=== PATIENT | female | born 1960 | race Caucasian/White ===

== ENCOUNTER 2018-02-10 18:05 | Observation (INO) | payer OTHER ==
[~2018-02-10] VITALS: Ht 167.6 cm; Wt 100.0 kg
[2018-02-10] VITALS (8 sets, daily range): BP systolic 106–177; BP diastolic 65–84; PULSE 70–91; RESP 15–20; TEMP 97.5–98.4; O2SAT 97–100
[~2018-02-10 18:05] MED LIST: ALDA100T PO; GABA600T PO; HYDR-3580 PO; OMEP20TA39 PO; PROBCAP4 PO; TAB-TAB PO
[2018-02-10] MEDS ORDERED: SODIUM CHLORIDE 0.9% FLUSH 10 ML FLUSH IVF PRN (18:45)
[2018-02-10] MEDS ORDERED: VITA2000 PO (19:00)
--- NOTE | 2018-02-10 19:21 | RADRPT ---
EXAM DATE/TIME: 02/10/2018 19:00 [facility] COMPARISON: CHEST PA & LAT, July 11, 2015, 14:20. INDICATIONS : Pt complaining of pain/pressure in the middle of her chest. MEDICAL HISTORY : None. SURGICAL HISTORY : None. ENCOUNTER: Initial ACUITY: 1 day PAIN SCORE: 3/10 LOCATION: Bilateral chest FINDINGS: A single view of the chest demonstrates the lungs to be symmetrically aerated without evidence of mas s, infiltrate or effusion. The cardiomediastinal contours are unremarkable. Osseous structures are intact. CONCLUSION: No acute disease. Lavon Taylor MD on February 10, 2018 at 19:18 Board Certified Radiologist. This report was verified electronically.
[2018-02-10 19:25] LABS: AUTOMATED NEUTROPHIL # 4.5 TH/MM3 (1.8-7.7); BASOPHIL # 0.1 TH/MM3 (0-0.2); BASOPHIL % 0.9 % (0.0-2.0); EOSINOPHIL # 0.2 TH/MM3 (0-0.4); EOSINOPHIL % 3.2 % (0.0-4.0); HEMATOCRIT 39.5 % (35.0-46.0); HEMOGLOBIN 13.6 GM/DL (11.6-15.3); LYMPH % 29.2 % (9.0-44.0); LYMPHOCYTE # 2.2 TH/MM3 (1.0-4.8); MEAN CELL VOLUME 91.8 FL (80.0-100.0); MEAN CORPUSCULAR HEMOGLOBIN 31.7 PG (27.0-34.0); MEAN CORPUSCULAR HGB CONC 34.5 % (32.0-36.0); MEAN PLATELET VOLUME 7.7 FL (7.0-11.0); MONO % 6.2 % (0.0-8.0); MONOCYTE # 0.5 TH/MM3 (0-0.9); NEUT % 60.5 % (16.0-70.0); PLATELET COUNT 288 TH/MM3 (150-450); RED CELL DISTRIBUTION WIDTH 12.9 % (11.6-17.2); WHITE BLOOD COUNT 7.5 TH/MM3 (4.0-11.0)
[2018-02-10 19:28] LABS: PROTHROMBIN TIME - PATIENT 10.3 SEC (9.8-11.6)
[2018-02-10] MEDS ORDERED: FAMOTIDINE 20 MG/2 ML VIAL IV PUSH SCH (19:30)
[2018-02-10] MEDS ORDERED: ASPIRIN 81 MG CHEW TAB CHEW ONE (19:30)
[2018-02-10 19:33] LABS: ALBUMIN 3.7 GM/DL (3.4-5.0); AST (GOT) 17 U/L (15-37); BICARBONATE 28.5 MEQ/L (21.0-32.0); BLOOD UREA NITROGEN 14 MG/DL (7-18); CALCIUM 8.7 MG/DL (8.5-10.1); CHLORIDE 106 MEQ/L (98-107); CREATININE 1.24 MG/DL (0.50-1.00); GLOMERULAR FILTRATION RATE 45 ML/MIN (>89); GLUCOSE,RANDOM 79 MG/DL (74-106); MAGNESIUM 1.9 MG/DL (1.5-2.5); SODIUM (NA) 141 MEQ/L (136-145)
[2018-02-10 19:35] LABS: ALT (GPT) 20 U/L (10-53)
[2018-02-10 19:38] LABS: ALKALINE PHOSPHATASE 88 U/L (45-117); TOTAL BILIRUBIN ADULT 0.3 MG/DL (0.2-1.0); TOTAL PROTEIN 7.5 GM/DL (6.4-8.2); TROPONIN I LESS THAN 0.02 NG/ML (0.02-0.05)
--- NOTE | 2018-02-10 19:38 | PD ---
HPI Chief Complaint: Chest Pain Time Seen by Provider: 19:10 Travel History International Travel<30 days: No Contact w/Intl Traveler<30days: No Traveled to known affect area: No History of Present Illness HPI Patient is a 57-year-old female who for 2 hours has had a stabbing intermittent pain in her left chest as well as her left upper arm. She denies exertionally came upon her as she was leaving work. She has no cardiac history she is not hypertensive nondiabetic she does not smoke. She has had a stress test many years ago and it was normal she says. She has no nausea no vomiting no shortness of breath nondiaphoretic it is focal left-sided chest pain off left the sternum nonreproducible and I palpate her left arm I cannot reproduce the pain when she palpates her left breast area she cannot reproduce the pain. She is allergic to amoxicillin I gave her to chewable aspirin Pepcid IV and EKG is normal sinus rhythm no ectopy and no ST elevations or depressions patient's labs are sent will evaluate troponin possible admit to chest pain center after negative throat PFSH Past Medical History Hx Anticoagulant Therapy: No Cancer: No Cardiovascular Problems: Yes (MITRAL VALVE PROLAPSE) Diminished Hearing: No Diverticulitis: Yes Endocrine: No Gastrointestinal Disorders: Yes (GASTRIC ULCER, GASTROPORESIS) Genitourinary: No Hepatitis: No Hiatal Hernia: Yes Immune Disorder: No Musculoskeletal: Yes (CERVICAL C5-C6 HERNIATION, LUMDAR DDD, ARTHRITIS) Psychiatric: No Reproductive: Yes (polycystic ovarian disease) Respiratory: Yes (BRONCHITIS) Tetanus Vaccination: < 5 Years Influenza Vaccination: No ?: Not Past Surgical History Abdominal Surgery: Yes (EXPLORATORY [id number] NEPHECTOMY, SPLEEN REPAIRED) Body Medical Devices: SCREW RIGHT FOOT Ear Surgery: No Endocrine Surgery: No Eye Surgery: No Genitourinary Surgery: Yes (LEFT NEPHRECTOMY) Gynecologic Surgery: Yes (HYSTERECTOMY) Hysterectomy: Yes Oral Surgery: Yes (TONSILLECTOMY AND ADENOIDECTOMY) Tonsillectomy: Yes Other Surgery: Yes (C5-C6 fusion) Social History Alcohol Use: Yes (occasionally) Tobacco Use: No Substance Use: No Allergies-Medications (Allergen,Severity, Reaction): Coded Allergies: amoxicillin (Unverified Allergy, Severe, hives, 02/10/18) Reported Meds & Prescriptions Reported Meds & Active Scripts Active Reported Vitamin D3 (Cholecalciferol) 2,000 Unit Cap 2,000 Units PO DAILY Physical Exam Exam Limitations: Poor Historian Narrative GENERAL: Awake alert nontoxic-appearing nondiaphoretic SKIN: Warm and dry. HEAD: Atraumatic. Normocephalic. EYES: Pupils equal and round. No scleral icterus. No injection or drainage. ENT: No nasal bleeding or discharge. Mucous membranes pink and moist. NECK: Trachea midline. No JVD. CARDIOVASCULAR: Regular rate and rhythm. Mildly hypertensive 164 systolic RESPIRATORY: No accessory muscle use. Clear to auscultation. Breath sounds equal bilaterally. GASTROINTESTINAL: Abdomen soft, non-tender, nondistended. Hepatic and splenic margins not palpable. MUSCULOSKELETAL: Extremities without clubbing, cyanosis, or edema. No obvious deformities. NEUROLOGICAL: Awake and alert. No obvious cranial nerve deficits. Motor grossly within normal limits. Five out of 5 muscle strength in the arms and legs. Normal speech. PSYCHIATRIC: Appropriate mood and affect; insight and judgment normal. Data Data Last Documented VS Vital Signs Date Time Temp Pulse Resp B/P (MAP) Pulse Ox O2 Delivery O2 Flow Rate FiO2 02/10/18 19:23 70 20 164/84 (110) 100 Nasal Cannula 2.00 02/10/18 18:14 98.4 Orders Orders Electrocardiogram (02/10/18 18:18) Chest, Single Ap (02/10/18 18:18) Electrocardiogram (02/10/18 18:40) Complete Blood Count With Diff (02/10/18 18:40) Comprehensive Metabolic Panel (02/10/18 18:40) Magnesium (Mg) (02/10/18 18:40) Prothrombin Time / Inr (Pt) (02/10/18 18:40) Act Partial Throm Time (Ptt) (02/10/18 18:40) Troponin I (02/10/18 18:40) Ecg Monitoring (02/10/18 18:40) Bilateral Bp Monitoring (02/10/18 18:40) Iv Access Insert/Monitor (02/10/18 18:40) Oximetry (02/10/18 18:40) Oxygen Administration (02/10/18 18:40) Sodium Chloride 0.9% Flush (Ns Flush) (02/10/18 18:45) Aspirin Chew (Aspirin Chew) (02/10/18 19:30) Famotidine Inj (Pepcid Inj) (02/10/18 19:30) Nitroglycerin 2% Oint (Nitroglycerin 2% (02/10/18 22:00) Admit Order (Ed Use Only) (02/10/18 19:47) Place In Observation (02/10/18 19:48) Activity Bed Rest With Brp (02/10/18 19:48) Vital Signs (Adult) Q4H (02/10/18 19:48) Cardiac Rhythm .As Directed (02/10/18 19:48) Notify Dr: Other .PRN (02/10/18 19:48) Notify Dr. Parameters (02/10/18 19:48) Resp Oxygen Nasal Cannula (02/10/18 ) Ckmb (Isoenzyme) Profile (02/10/18 19:48) Ckmb (Isoenzyme) Profile (02/10/18 22:48) Troponin I (02/10/18 19:48) Troponin I (02/10/18 22:48) Electrocardiogram (02/10/18 19:48) Electrocardiogram (02/10/18 22:48) ^ Obtain (02/10/18 19:48) Health Aide / Telemetry KEISHA.Q8H (02/10/18 19:48) Labs Laboratory Tests Test 02/10/18 18:45 White Blood Count 7.5 TH/MM3 Red Blood Count 4.30 MIL/MM3 Hemoglobin 13.6 GM/DL Hematocrit 39.5 % Mean Corpuscular Volume 91.8 FL Mean Corpuscular Hemoglobin 31.7 PG Mean Corpuscular Hemoglobin Concent 34.5 % Red Cell Distribution Width 12.9 % Platelet Count 288 TH/MM3 Mean Platelet Volume 7.7 FL Neutrophils (%) (Auto) 60.5 % Lymphocytes (%) (Auto) 29.2 % Monocytes (%) (Auto) 6.2 % Eosinophils (%) (Auto) 3.2 % Basophils (%) (Auto) 0.9 % Neutrophils # (Auto) 4.5 TH/MM3 Lymphocytes # (Auto) 2.2 TH/MM3 Monocytes # (Auto) 0.5 TH/MM3 Eosinophils # (Auto) 0.2 TH/MM3 Basophils # (Auto) 0.1 TH/MM3 CBC Comment DIFF FINAL Differential Comment Prothrombin Time 10.3 SEC Prothromb Time International Ratio 1.0 RATIO Activated Partial Thromboplast Time 26.8 SEC Blood Urea Nitrogen 14 MG/DL Creatinine 1.24 MG/DL Random Glucose 79 MG/DL Total Protein 7.5 GM/DL Albumin 3.7 GM/DL Calcium Level 8.7 MG/DL Magnesium Level 1.9 MG/DL Alkaline Phosphatase 88 U/L Aspartate Amino Transf (AST/SGOT) 17 U/L Alanine Aminotransferase (ALT/SGPT) 20 U/L Total Bilirubin 0.3 MG/DL Sodium Level 141 MEQ/L Potassium Level 3.7 MEQ/L Chloride Level 106 MEQ/L Carbon Dioxide Level 28.5 MEQ/L Anion Gap 7 MEQ/L Estimat Glomerular Filtration Rate 45 ML/MIN Troponin I LESS THAN 0.02 NG/ML MDM Medical Decision Making Medical Screen Exam Complete: Yes Emergency Medical Condition: Yes Differential Diagnosis Patient has chest pain left-sided possibly from acid reflux gastritis possibly bronchitis pneumonia pulmonary embolism pneumothorax versus cardiac causes of ischemia versus acute coronary syndrome versus pericarditis versus other Narrative Course Patient is given 2 baby aspirin as well as Pepcid IV she still has the pain coming and going first troponin is negative EKG is normal sinus rhythm she is admitted to chest pain center for stress test in the a.m. with 3 serial troponins at this time she is stable and given aspirin and Nitropaste to vasodilator as well as that her blood in case this is caused by cardiac ischemia with possible clot over coronary artery Diagnosis Primary Impression: Chest pain Tomas Olivia MD Feb 10, 2018 19:38
[2018-02-10 23:22] LABS: TROPONIN I LESS THAN 0.02 NG/ML (0.02-0.05)
[2018-02-10] MEDS: NITROGLYCERIN 2% OINT 1 GM PACKET TOPICAL SCH (23:34)
[2018-02-11] VITALS: PULSE 78
[2018-02-11 01:49] LABS: TROPONIN I LESS THAN 0.02 NG/ML (0.02-0.05)
[2018-02-11 04:03] VITALS: BP_SYST 104; BP_SYST 71; BP_DIAS 47; BP_DIAS 58; PULSE 86; RESP 16; TEMP 98.1; O2SAT 93
[2018-02-11 04:27] VITALS: PULSE 75
[2018-02-11] MEDS: NITROGLYCERIN 2% OINT 1 GM PACKET TOPICAL SCH (05:26)
[2018-02-11 07:13] VITALS: PULSE 98
[2018-02-11 08:09] VITALS: BP 121/56; PULSE 76; RESP 20; TEMP 98.1; O2SAT 95
--- NOTE | 2018-02-11 09:06 | HHI.HP ---
[facility] Primary Care Physician Pennie Alonso M.D. Chief Complaint Chest pain History of Present Illness This is a 57-year-old female that presents to ED via private vehicle with a complaint of couple hours of intermittent left-sided chest discomfort and also radiated to the left upper arm. It occurred as she was leaving from work. Denies shortness of breath, nausea, or diaphoresis. Currently denies chest discomfort. Review of Systems General: Patient denies fevers, chills recent, and recent travel HEENT: Patient denies headache. Cardiovascular: Has the chest discomfort as mentioned above. Denies sensation of heart beating rapidly or irregularly. No syncope. Denies diaphoresis. Respiratory: Denies shortness of breath or inspirational chest discomfort. Denies coughing wheezing or hemoptysis. GI: Patient denies nausea, vomiting, diarrhea, abdominal pain, bloody stools. Musculoskeletal: Patient denies joint pain or edema. Denies calf pain or edema. Neurovascular: Patient denies numbness, tingling, weakness in extremities. Denies headache. Past Family Social History Allergies: Coded Allergies: amoxicillin (Unverified Allergy, Severe, hives, 02/10/18) Past Medical History History of chronic kidney disease. Past Surgical History Tonsillectomy. Cervical fusion. Hysterectomy. Reported Medications Reported Meds & Active Scripts Active Reported Vitamin D3 (Cholecalciferol) 2,000 Unit Cap 2,000 Units PO DAILY Active Ordered Medications Current Medications Medications (Trade) Dose Ordered Sig/Alexey Route Start Time Stop Time Status Last Admin (NS Flush) 2 ml UNSCH PRN IVF 02/10/18 18:45 (Pepcid Inj) 20 mg ONCE IV PUSH 02/10/18 19:30 02/10/18 19:37 (Nitroglycerin 2% Oint) 0.5 inch Q8HR TOPICAL 02/10/18 22:00 02/10/18 23:34 Family History History of congestive heart failure. Social History Non-smoker. Occasional alcohol. Denies illicit drugs. Physical Exam Vital Signs Vital Signs Date Time Temp Pulse Resp B/P (MAP) Pulse Ox O2 Delivery O2 Flow Rate FiO2 02/11/18 08:09 98.1 76 20 121/56 (77) 95 02/11/18 07:13 98 02/11/18 04:27 75 02/11/18 04:03 98.1 86 16 104/58 (73) 93 02/11/18 00:00 78 02/10/18 22:08 97.5 88 16 106/72 (83) 97 02/10/18 20:58 97.9 86 15 133/78 (96) 97 02/10/18 20:00 86 02/10/18 19:23 70 20 164/84 (110) 100 Nasal Cannula 2.00 02/10/18 18:44 139/65 (89) 177/81 (113) 02/10/18 18:44 Nasal Cannula 2.00 02/10/18 18:42 91 19 139/65 (89) 99 Nasal Cannula 2.00 177/81 (113) 02/10/18 18:41 98 Room Air 02/10/18 18:14 98.4 76 16 139/65 (89) 100 Physical Exam GENERAL: This is a well-nourished, well-developed patient, in no apparent distress. Patient speaks in clear complete sentences. Patient is pleasant. HEENT: Head is atraumatic and normocephalic. Neck is supple without lymphadenopathy and trachea is midline. No JVD or carotid bruits. CARDIOVASCULAR: Regular rate and rhythm without murmurs, gallops, or rubs. RESPIRATORY: Clear to auscultation. Breath sounds equal bilaterally. No wheezes , rales, or rhonchi. Chest wall is nontender. No use of accessory muscles. GASTROINTESTINAL: Abdomen is nontender, nondistended. Abdomen soft. No obvious pulsatile mass or bruit. No CVA tenderness. Strong femoral pulses bilaterally. Normal bowel sounds in all quadrants. MUSCULOSKELETAL: Patient is moving upper and lower extremities freely. No calf tenderness or edema, no Homans sign. Strong pulses in upper and lower extremities. NEUROLOGICAL: Patient is alert and oriented. Cranial nerves 2-12 are grossly intact. No focal deficits and speech is clear. SKIN: No rash and turgor is normal. Laboratory Laboratory Tests Test 02/10/18 18:45 02/10/18 22:20 02/11/18 01:10 White Blood Count 7.5 Red Blood Count 4.30 Hemoglobin 13.6 Hematocrit 39.5 Mean Corpuscular Volume 91.8 Mean Corpuscular Hemoglobin 31.7 Mean Corpuscular Hemoglobin Concent 34.5 Red Cell Distribution Width 12.9 Platelet Count 288 Mean Platelet Volume 7.7 Neutrophils (%) (Auto) 60.5 Lymphocytes (%) (Auto) 29.2 Monocytes (%) (Auto) 6.2 Eosinophils (%) (Auto) 3.2 Basophils (%) (Auto) 0.9 Neutrophils # (Auto) 4.5 Lymphocytes # (Auto) 2.2 Monocytes # (Auto) 0.5 Eosinophils # (Auto) 0.2 Basophils # (Auto) 0.1 CBC Comment DIFF FINAL Differential Comment Prothrombin Time 10.3 Prothromb Time International Ratio 1.0 Activated Partial Thromboplast Time 26.8 Blood Urea Nitrogen 14 Creatinine 1.24 Random Glucose 79 Total Protein 7.5 Albumin 3.7 Calcium Level 8.7 Magnesium Level 1.9 Alkaline Phosphatase 88 Aspartate Amino Transf (AST/SGOT) 17 Alanine Aminotransferase (ALT/SGPT) 20 Total Bilirubin 0.3 Sodium Level 141 Potassium Level 3.7 Chloride Level 106 Carbon Dioxide Level 28.5 Anion Gap 7 Estimat Glomerular Filtration Rate 45 Troponin I LESS THAN 0.02 LESS THAN 0.02 LESS THAN 0.02 Total Creatine Kinase 60 56 Result Diagram: 02/10/18 1845 02/10/18 184 Imaging Last 48 hours Impressions Chest X-Ray 02/10/18 181 Signed Impressions: Service Date/Time: Saturday, February 10, 2018 19:00 - CONCLUSION: No acute disease. Lavon Taylor MD Course EKGs a sinus rhythm without significant ST segment depressions or elevations. Caprini VTE Risk Assessment Caprini VTE Risk Assessment: No/Low Risk (score <= 1) Caprini Risk Assessment Model Point Value = 1 Point Value = 2 Point Value = 3 Point Value = 5 Age 41-60 Minor surgery BMI > 25 kg/m2 Swollen legs Varicose veins or History of unexplained or recurrent spontaneous Oral contraceptives or hormone replacement Sepsis (< 1 month) Serious lung disease, including pneumonia (< 1 month) Abnormal pulmonary function Acute myocardial infarction Congestive heart failure (< 1 month) History of inflammatory bowel disease Medical patient at bed rest Age 61-74 Arthroscopic surgery Major open surgery (> 45 min) Laparoscopic surgery (> 45 min) Malignancy Confined to bed (> 72 hours) Immobilizing plaster cast Central venous access Age >= 75 History of VTE Family history of VTE Factor V Leiden Prothrombin [id number] Lupus anticoagulant Anticardiolipin antibodies Elevated serum homocysteine Heparin-induced thrombocytopenia Other congenital or acquired thrombophilia Stroke (< 1 month) Elective arthroplasty Hip, pelvis, or leg fracture Acute spinal cord injury (< 1 month) Prophylaxis Regimen Total Risk Factor Score Risk Level Prophylaxis Regimen 0-1 Low Early ambulation 2 Moderate Order ONE of the following: *Sequential Compression Device (SCD) *Heparin 5000 units SQ BID 3-4 Higher Order ONE of the following medications: *Heparin 5000 units SQ TID *Enoxaparin/Lovenox 40 mg SQ daily (WT < 150 kg, CrCl > 30 mL/min) *Enoxaparin/Lovenox 30 mg SQ daily (WT < 150 kg, CrCl > 10-29 mL/min) *Enoxaparin/Lovenox 30 mg SQ BID (WT < 150 kg, CrCl > 30 mL/min) AND/OR *Sequential Compression Device (SCD) 5 or more Highest Order ONE of the following medications: *Heparin 5000 units SQ TID (Preferred with Epidurals) *Enoxaparin/Lovenox 40 mg SQ daily (WT < 150 kg, CrCl > 30 mL/min) *Enoxaparin/Lovenox 30 mg SQ daily (WT < 150 kg, CrCl > 10-29 mL/min) *Enoxaparin/Lovenox 30 mg SQ BID (WT < 150 kg, CrCl > 30 mL/min) AND *Sequential Compression Device (SCD) Assessment and Plan Assessment and Plan * Chest pain: Patient has had serial cardiac enzymes and EKGs for ruling out purposes. She was seen by Dr. Davis Rose of cardiology in the chest pain center and will undergo a Lexiscan. Patient be discharged home if her stress test is nonischemic with instructions to follow-up with PCP. Return to ED for interval issues. * Chronic kidney disease: Patient to continue follow-up with her PCP. Patient is stable at this time. She is agreeable to this plan. Tucker Leal Feb 11, 2018 09:05
[2018-02-11] MEDS ORDERED: REGADENOSON INJ 0.4 MG/5 ML SYR ONE (09:28)
--- NOTE | 2018-02-11 09:57 | EKG ---
Date Performed: 02/11/2018 Time Performed: 00:58:41 PTAGE: 57 years EKG: Sinus rhythm NORMAL ECG PREVIOUS TRACING : 02/10/2018 21.52 Since previous tracing, no significant change noted DOCTOR: Davis Rose Interpretating Date/Time 02/11/2018 09:55:50
--- NOTE | 2018-02-11 09:58 | EKG ---
Date Performed: 02/10/2018 Time Performed: 21:52:39 PTAGE: 57 years EKG: Sinus rhythm NORMAL ECG PREVIOUS TRACING : 02/10/2018 18.20 Since previous tracing, no significant change noted DOCTOR: Davis Rose Interpretating Date/Time 02/11/2018 09:56:32
--- NOTE | 2018-02-11 09:59 | EKG ---
Date Performed: 02/10/2018 Time Performed: 18:20:31 PTAGE: 57 years EKG: Sinus rhythm WITH SINUS ARRHYTHMIA NORMAL ECG PREVIOUS TRACING : 07/11/2015 15.24 Since previous tracing, no significant change noted DOCTOR: Davis Rose Interpretating Date/Time 02/11/2018 09:57:19
--- NOTE | 2018-02-11 10:40 | RADRPT ---
EXAM DATE/TIME: 02/11/2018 08:48 [facility] COMPARISON: No previous studies available for comparison. INDICATIONS : Left chest pain radiating to the left arm. Angina. DOSE: 34.8 mCi Tc99m Myoview at stress. 10.9 mCi Tc99m Myoview at rest. 0.4 mg Lexiscan STRESS SYMPTOMS: Short of breath. EJECTION FRACTION: 65% MEDICAL HISTORY : Hernia, hiatal. Diverticulitis. SURGICAL HISTORY : Hysterectomy. Nephrectomy, left. Tonsillectomy. ENCOUNTER: Initial ACUITY: 1 day PAIN SCALE: 8/10 LOCATION: Left chest TECHNIQUE: The patient underwent pharmacologic stress with infusion of prescribed dose. Continuous ECG tracing was monitored during stress. Gated SPECT imaging was performed after stress and conventional SPECT i maging was performed at rest. The examination was performed on a SPECT/CT scanner, both attenuation and non-corrected datasets were reviewed. FINDINGS: DISTRIBUTION: The maximum perfused segment at stress is in the lateral wall. PERFUSION STUDY: The pattern of perfusion at stress is within normal limits. GATED STUDY: There is intact wall motion and thickening without hypokinetic or dyskinetic segments. CONCLUSION: 1. No significant stress induced ischemia. 2. Intact wall motion with EF of 65%. RISK CATEGORY: Low (<1% Annual Mortality Rate) Cabrera Russell MD on February 11, 2018 at 10:37 Board Certified Radiologist. This report was verified electronically.
--- NOTE | 2018-02-11 11:22 | HHI.DCPOC ---
Discharge Care Plan Diagnosis: (1) Chest pain (2) CKD (chronic kidney disease) Goals to Promote Your Health * To prevent worsening of your condition and complications * To maintain your health at the optimal level Directions to Meet Your Goals Take your medications as prescribed Follow your dietary instruction Follow activity as directed Keep your appointments as scheduled Take your immunizations and boosters as scheduled If your symptoms worsen call your PCP, if no PCP go to Urgent Care Center or Emergency Room Smoking is Dangerous to Your Health. Avoid second hand smoke Call the 24-hour hour crisis hotline for domestic abuse at Tucker Leal Feb 11, 2018 11:22
[2018-02-11 11:46] VITALS: BP 135/83; PULSE 78; RESP 16; TEMP 98.3; O2SAT 97
--- NOTE | 2018-02-13 11:39 | TR ---
Date Performed: 02/11/2018 Time Performed: 09:27:31 DOCTOR: Andi Lopez DRUG LIST: CLINICAL HISTORY: ANGINA REASON FOR TEST: Angina REASON FOR ENDING: OBSERVATION: CONCLUSION: COMMENTS: Lexiscan stress test was performed under standard four minute protocol. Radionuclide was injected one minute prior to ending the test. No electrocardiographic abormalities were present t o suggest ischemia. Nuclear imaging and interpretation are pending.
== END 2018-02-11 13:55 | disposition home or self-care (01) ==
LOC: NEPE 18:05 → NEDA 19:49 → NEPHCDU 20:56
PROVIDERS: ADMIT Internal Medicine Cardiovascular Disease; ATTEND Internal Medicine Cardiovascular Disease
DX: R07.89 Other chest pain (principal); N18.9 Chronic kidney disease, unspecified; I20.9 Angina pectoris, unspecified; K57.92 Diverticulitis of intestine, part unspecified, without perforation or abscess without bleeding; Z82.49 Family history of ischemic heart disease and other diseases of the circulatory system
CPT/HCPCS: 71045; 78452; 80053; 82550; 83735; 84484; 85025; 85610; 85730; 93005; 93017; 96374; 99285; A9502; G0378; J2785